=== PATIENT | female | born 1970 | race Two or more races ===

== ENCOUNTER 2017-06-20 13:08 | Emergency (ER) | payer OTHER ==
[~2017-06-20] VITALS: Ht 157.5 cm; Wt 72.6 kg
--- NOTE | 2017-06-20 14:38 | Emergency Room Report ---
History of Present Illness General Chief Complaint: Vaginal Source: Patient (Jessica Benítez) Present Illness HPI 47-year-old female presents to the emergency department complaining of erythema , swelling, tenderness to the right vaginal labia x2 weeks. Patient reports swelling and tenderness have been progressive with significant progression since yesterday. Patient reports that she was seen by an urgent care clinic and was prescribed antibiotics for vaginal discharge but then called several days later and told to DC antibiotics as her results were normal. Patient denies dysuria, hematuria, continued vaginal discharge. Patient denies fevers chills or swollen tender lymph nodes. Denies abdominal pain. Denies CP, Palpitations, LOC, AMS, dizziness, Changes in Vision, Sensation, paresthesias, or a sudden severe headache. (Jessica Beíntez) Allergies: Coded Allergies: No Known Allergies (Unverified , 06/20/17) Patient History Past Medical History: see triage record Past Surgical History: none Pertinent Family History: none Last Menstrual Period: 3 weeks ago Now: No Immunizations: UTD Reviewed Nursing Documentation: PMH: Agreed, PSxH: Agreed (Jessica Benítez) Nursing Documentation-PMH Past Medical History: No Stated History (Jessica Benítez) Review of Systems All Other Systems: negative except mentioned in HPI (Jessica Benítez) Physical Exam Vital Signs Date Time Temp Pulse Resp B/P (MAP) Pulse Ox O2 Delivery O2 Flow Rate FiO2 06/20/17 13:17 98.4 88 16 134/84 98 Room Air Sp02 EP Interpretation: reviewed, normal General Appearance: no apparent distress, alert, GCS 15, non-toxic Head: normocephalic, atraumatic ENT: hearing grossly normal, normal voice Neck: full range of motion Respiratory: lungs clear, normal breath sounds, speaking full sentences Cardiovascular #1: regular rate, rhythm Gastrointestinal: non tender, soft Musculoskeletal: back normal, gait/station normal, normal range of motion, non- tender Neurologic: alert, oriented x3, responsive, motor strength/tone normal, sensory intact, speech normal, grossly normal Psychiatric: judgement/insight normal Skin: warm/dry, well hydrated, other - 1 cm abscess palpated to the lower right external labia, erythema noted, no blisters or vesicles, fluctuance palpated. Lymphatic: no adenopathy (Jessica Benítez) Procedures Incision and Drainage Incision and Drainage : Consent: Verbal Blade Size: 11 I & D Procedure: betadine prep Wound Location: other - right external labia Wound's Depth, Shape: superficial Wound Length (cm): 1 Wound Explored: contaminated - purulent drainage was expressed Anesthesia: Lidocaine w/ Epi Volume Anesthetic (ccs): 1 Splint Applied?: No Sling Applied?: No Patient Tolerated: Well Complications: None (Jessica Benítez) Medical Decision Making PA Attestation Dr. Quinn is my supervising Physician whom patient management has been discussed with. (Jessica Benítez) Diagnostic Impression: Primary Impression: Abscess ER Course 47-year-old female presents to the emergency department complaining of erythema , swelling, tenderness to the right vaginal labia x2 weeks. Patient reports swelling and tenderness have been progressive with significant progression since yesterday. Patient reports that she was seen by an urgent care clinic and was prescribed antibiotics for vaginal discharge but then called several days later and told to DC antibiotics as her results were normal. Patient denies dysuria, hematuria, continued vaginal discharge. Patient denies fevers chills or swollen tender lymph nodes. Denies abdominal pain. Denies CP, Palpitations, LOC, AMS, dizziness, Changes in Vision, Sensation, paresthesias, or a sudden severe headache. Ddx considered but are not limited to cellulitis, abscess, cystic acne, necrotizing fasciitis, insect bite. Vital signs: are WNL, pt. is afebrile H&PE are most consistent with abscess. ORDERS: none required at this time, the diagnosis is clinical ED INTERVENTIONS: - I & D DISCHARGE: At this time pt. is stable for d/c to home. Will provide printed patient care instructions, and any necessary prescriptions. Care plan and follow up instructions have been discussed with the patient prior to discharge. (Jessica Benítez) Last Vital Signs Date Time Temp Pulse Resp B/P (MAP) Pulse Ox O2 Delivery O2 Flow Rate FiO2 06/20/17 13:17 98.4 88 16 134/84 98 Room Air (Jessica Benítez) Last Vital Signs Date Time Temp Pulse Resp B/P (MAP) Pulse Ox O2 Delivery O2 Flow Rate FiO2 06/20/17 15:10 98.4 16 134/84 98 Room Air 06/20/17 13:17 88 (Jorge Quinn M.D.) Disposition: HOME, SELF-CARE Condition: Stable Scripts Bacitracin/Polymyxin B Sulfate (BACITRACIN-POLYMYXIN OINTMENT) 28.35 Gm Oint...g. 1 APPLIC TP BID, #28.3 GM Prov: Jessica Benítez 06/20/17 Cephalexin* (KEFLEX*) 500 Mg Capsule 500 MG ORAL EVERY 12 HOURS for 7 Days, #14 CAP 0 Refills Prov: Jessica Benítez 06/20/17 Patient Instructions: Abscess Additional Instructions: Take medications as directed. Follow up with a Primary Care Provider in 3-5 days, even if your symptoms have resolved. --Please review list of primary care clinics, if you do not already have a primary care provider Return sooner to ED if new symptoms occur, or current symptoms become worse. - Please note that this Emergency Department Report was dictated using [employer] technology software, occasionally this can lead to erroneous entry secondary to interpretation by the dictation equipment. Jessica Benítez Jun 20, 2017 14:38 Jorge Quinn M.D. Jun 22, 2017 06:55
[2017-06-20] MEDS ORDERED: CEPHALEXIN500 MG ORAL (14:42)
[2017-06-20] MEDS ORDERED: BACITRACIN-P28.35 GM TP (14:42)
[2017-06-20 15:10] VITALS: BP 134/84
== END 2017-06-20 15:12 | disposition home or self-care (01) ==
LOC: EMR 14:40
DX: N76.4 Abscess of vulva (principal)
CPT/HCPCS: 10060; 99283

== ENCOUNTER → 2019-07-26 | Emergency (ER) | payer OTHER ==
[~2019-07-26] VITALS: Ht 157.5 cm; Wt 73.5 kg
[~2019-07-26] MED LIST: ANUSOL-HC30 GM RC; BACITRACIN-P28.35 GM TP; CEPHALEXIN500 MG ORAL; COLACE100 MG ORAL; IBUPROFEN600 MG ORAL; LIPITOR80 MG ORAL; PROMETHAZINE-D118 ML ORAL; TYLENOL EXTRA500 MG ORAL; ZITHROMAX250 MG ORAL
--- NOTE | 2019-07-26 16:40 | NUR ---
ED Nurse Note: pt ambulated into ED from home c/o "bulging flesh" around the anus, painful. denies any bleeding. Pt is AOx4, calm and cooperative, placed on bed.
--- NOTE | 2019-07-26 16:45 | Emergency Room Report ---
History of Present Illness General Chief Complaint: Pain Source: Patient Present Illness HPI 49-year-old female with no segment past medical history here complaining of 2 days of a painful mass in anal region. Reports that she has been straining however denies constipation. Denies any blood in stool. Denies fever and chills, recent travel. Denies abdominal pain, nausea vomiting. Nonbleeding external hemorrhoid visualized. COVID-19 risk:Travel to affect: No Has patient experienced palmer: No Allergies: Coded Allergies: No Known Allergies (Unverified , 06/20/17) Patient History Past Medical History: see triage record Past Surgical History: none Pertinent Family History: none Now: No Immunizations: UTD Reviewed Nursing Documentation: PMH: Agreed; PSxH: Agreed Nursing Documentation-PMH Past Medical History: No Stated History Review of Systems All Other Systems: negative except mentioned in HPI Physical Exam Vital Signs Date Time Temp Pulse Resp B/P (MAP) Pulse Ox O2 Delivery O2 Flow Rate FiO2 07/26/19 16:32 98.2 72 17 141/90 (107) 97 Room Air Sp02 EP Interpretation: reviewed, normal General Appearance: no apparent distress, alert, GCS 15, non-toxic Head: normocephalic, atraumatic Eyes: bilateral eye normal inspection, bilateral eye PERRL ENT: hearing grossly normal, normal pharynx, no angioedema, normal voice Neck: full range of motion, supple/symm/no masses Respiratory: chest non-tender, lungs clear, normal breath sounds, no rhonchi, no wheezing, speaking full sentences Cardiovascular #1: regular rate, rhythm, no edema Gastrointestinal: normal bowel sounds, non tender, soft, non-distended, no guarding, no rebound Rectal: deferred, hemorrhoids - Nonbleeding external Genitourinary: no CVA tenderness Musculoskeletal: back normal, normal range of motion, gait/station normal, non- tender Neurologic: alert, motor strength/tone normal, oriented x3, sensory intact, responsive, speech normal Psychiatric: judgement/insight normal, memory normal, mood/affect normal, no suicidal/homicidal ideation Skin: no rash Lymphatic: no adenopathy Medical Decision Making PA Attestation All my diagnosis and treatment plans were reviewed ad discussed with my supervising physician Dr. Spence Diagnostic Impression: Primary Impression: External hemorrhoid ER Course 49-year-old female with no segment past medical history here complaining of 2 days of a painful mass in anal region. Reports that she has been straining however denies constipation. Denies any blood in stool. Denies fever and chills, recent travel. Denies abdominal pain, nausea vomiting. Nonbleeding external hemorrhoid visualized. Ddx considered but are not limited to : Anal fissure, perianal abscess, pyrosis , external hemorrhoids, internal hemorrhoid, bleeding external hemorrhoids Vital signs: are WNL, pt. is afebrile H&PE are most consistent with: Nonbleeding external hemorrhoid ORDERS: Anusol rectal cream, Motrin, Colace ED INTERVENTIONS: None required at this time. DISCHARGE: At this time pt. is stable for d/c to home. Will provide printed patient care instructions, and any necessary prescriptions. Care plan and follow up instructions have been discussed with the patient prior to discharge. Increase fiber intake, increase oral hydration, take medication as directed, if worsening symptoms return to the emergency room Last Vital Signs Date Time Temp Pulse Resp B/P (MAP) Pulse Ox O2 Delivery O2 Flow Rate FiO2 07/26/19 16:32 98.2 72 17 141/90 (107) 97 Room Air Disposition: HOME, SELF-CARE Condition: Stable Scripts Ibuprofen* (MOTRIN*) 600 Mg Tablet 600 MG ORAL Q8H PRN for For Pain, #30 TAB 0 Refills Prov: Saqib Barrientos 07/26/19 Hydrocortisone Hc 2.5% Cream (ANUSOL-HC 2.5% CREAM) Y Cr 2 GM RC TID, #30 GM Prov: Saqib Barrientos 07/26/19 Docusate Sodium* (COLACE*) 100 Mg Capsule 100 MG ORAL DAILY, #10 CAP Prov: Saqib Barrientos 07/26/19 Patient Instructions: Hemorrhoids, Piqu-ds-Fdyb Additional Instructions: Drink a lot of water, increase your fiber intake, take stool softeners, take medication as directed, follow-up with your primary care provider, if worsening symptoms return to emergency room Saqib Barrientos Jul 26, 2019 16:45
[2019-07-26 16:50] VITALS: BP 141/90
[2019-07-26 16:58] VITALS: BP 141/90
--- NOTE | 2019-07-26 16:58 | NUR ---
ER DISCHARGE NOTE: Pt is cleared to be discharged per ERMD, pt is aox4, on room air, with stable vital signs. pt was given dc and prescription instructions, pt was able to verbalize understanding, pt id band removed. pt is able to ambulate with steady gait. pt took all belongings.
== END | disposition home or self-care (01) ==
LOC: EMR 16:45
DX: K64.4 Residual hemorrhoidal skin tags (principal)
CPT/HCPCS: 99283

== ENCOUNTER 2019-07-31 15:08 | Emergency (ER) | payer OTHER ==
[~2019-07-31] VITALS: Ht 157.5 cm; Wt 77.1 kg
[2019-07-31 15:08] VITALS: BP 163/99
[~2019-07-31 15:08] MED LIST changes: -PROMETHAZINE-D118 ML ORAL; -TYLENOL EXTRA500 MG ORAL; -ZITHROMAX250 MG ORAL
--- NOTE | 2019-07-31 15:55 | Emergency Room Report ---
History of Present Illness General Chief Complaint: Flu Like Symptoms Source: Patient Present Illness HPI 49-year-old female presents to the emergency department complaining of 8 out of 10 severity generalized body aches, headache, subjective fevers and chills in addition to intermittent cough and sore throat x2 days. Patient states that she has been taking vaoj-sln-gveeqxz cough and cold medications to manage her symptoms. Patient brought her medications with her and it appears to contain acetaminophen dextromethorphan and guaifenesin. Patient reports she last took some at 5 in the morning. Denies recent travel. Denies contact with persons who have tested positive for or are under investigation/quarantine for COVID- 19. Patient states that she was around someone that was coughing 2 days ago at the pharmacy when she was getting medications. She also states she did not receive this years flu vaccine. Patient denies any significant past medical history. Patient denies mucus production. COVID-19 risk:Travel to affect: No Has patient experienced palmer: Yes Coronavirus symptoms experienc: Fever (T>100.4F or >38C), Cough, Runny Nose, Flu-Like Symptoms Allergies: Coded Allergies: No Known Allergies (Unverified , 06/20/17) Patient History Past Medical History: see triage record Past Surgical History: none Pertinent Family History: none Now: No Reviewed Nursing Documentation: PMH: Agreed; PSxH: Agreed Nursing Documentation-PMH Past Medical History: No History, Except For Review of Systems All Other Systems: negative except mentioned in HPI Physical Exam Vital Signs Date Time Temp Pulse Resp B/P (MAP) Pulse Ox O2 Delivery O2 Flow Rate FiO2 07/31/19 14:54 99.9 108 23 163/99 (120) 99 Room Air Sp02 EP Interpretation: reviewed, normal General Appearance: no apparent distress, alert, GCS 15, non-toxic Head: normocephalic, atraumatic Eyes: bilateral eye normal inspection, bilateral eye PERRL ENT: hearing grossly normal, normal voice, pharyngeal erythema, other - no exudates Neck: full range of motion, no meningismus Respiratory: chest non-tender, lungs clear, normal breath sounds, no respiratory distress, no accessory muscle use, no wheezing, speaking full sentences Cardiovascular #1: regular rate, rhythm, normal capillary refill Genitourinary: normal inspection, no CVA tenderness Musculoskeletal: back normal, normal range of motion, gait/station normal, non- tender Neurologic: alert, motor strength/tone normal, oriented x3, sensory intact, responsive, speech normal Psychiatric: judgement/insight normal Skin: no rash, normal color, normal inspection Lymphatic: no adenopathy Medical Decision Making PA Attestation Dr. Montejo is my supervising Physician whom patient management has been discussed with. Diagnostic Impression: Primary Impression: Acute viral syndrome Additional Impressions: Leukocytosis Qualified Codes: D72.828 - Other elevated white blood cell count Fever Qualified Codes: R50.9 - Fever, unspecified ER Course Pt. presents to the ED with s/sx c/w URI in the setting of a local COVID-19 Outbreak. - This PT. was triaged outside the facility in a designated staging area and placed into isolation tent. - Full PPE for airborne/droplet isolation (booties, Gown, doubled nitrile gloves, N95 Mask covered by Surgical mask w. face shield, and hair net) was dawned in the designated HCP staging area prior to pt. interaction. 49-year-old female presents to the emergency department complaining of 8 out of 10 severity generalized body aches, headache, subjective fevers and chills in addition to intermittent cough and sore throat x2 days. Patient states that she has been taking [id number]-[id number] cough and cold medications to manage her symptoms. Patient brought her medications with her and it appears to contain acetaminophen dextromethorphan and guaifenesin. Patient reports she last took some at 5 in the morning. Denies recent travel. Denies contact with persons who have tested positive for or are under investigation/quarantine for COVID- 19. Patient states that she was around someone that was coughing 2 days ago at the pharmacy when she was getting medications. She also states she did not receive this years flu vaccine. Patient denies any significant past medical history. Patient denies mucus production. Ddx considered but are not limited to URI, pneumonia, PE, strep pharyngitis, meningitis. Vital signs: Pt. is Tachycardic and febrile, the remaining VS are WNL H&PE are most consistent with URI- no meningeal signs, oropharynx is not involved, no evidence of bacterial infection at this time. ORDERS: -Influenza A & B : Negative - CXR: WNL -CBC: elevated WBC's -COVID-19: PENDING ED INTERVENTIONS: -Toradol IM -Tylenol PO DISCHARGE: At this time pt. is stable for d/c to home. Will provide printed patient care instructions, and any necessary prescriptions. Care plan and follow up instructions have been discussed with the patient prior to discharge. Labs Test 07/31/19 16:17 White Blood Count 19.8 K/UL (4.8-10.8) Red Blood Count 5.09 M/UL (4.20-5.40) Hemoglobin 15.4 G/DL (12.0-16.0) Hematocrit 45.0 % (37.0-47.0) Mean Corpuscular Volume 88 FL (80-99) Mean Corpuscular Hemoglobin 30.2 PG (27.0-31.0) Mean Corpuscular Hemoglobin Concent 34.1 G/DL (32.0-36.0) Red Cell Distribution Width 12.9 % (11.6-14.8) Platelet Count 244 K/UL (150-450) Mean Platelet Volume 9.1 FL (6.5-10.1) Neutrophils (%) (Auto) % (45.0-75.0) Lymphocytes (%) (Auto) % (20.0-45.0) Monocytes (%) (Auto) % (1.0-10.0) Eosinophils (%) (Auto) % (0.0-3.0) Basophils (%) (Auto) % (0.0-2.0) Differential Total Cells Counted 100 Neutrophils % (Manual) 80 % (45-75) Lymphocytes % (Manual) 8 % (20-45) Monocytes % (Manual) 6 % (1-10) Eosinophils % (Manual) 0 % (0-3) Basophils % (Manual) 1 % (0-2) Band Neutrophils 5 % (0-8) Platelet Estimate Adequate Platelet Morphology Normal Red Blood Cell Morphology Normal Chest X-Ray Diagnostic Results Chest X-Ray Diagnostic Results : Chest X-Ray Ordered: Yes # of Views/Limited/Complete: 1 View EP Interpretation: Yes PA Xray: Interpretation reviewed, by supervising MD, and agrees with findings. Interpretation: no consolidation, no effusion, no pneumothorax, no acute cardiopulmonary disease Impression: No acute disease Electronically Signed by: Jessica Benítez PA-C Last Vital Signs Date Time Temp Pulse Resp B/P (MAP) Pulse Ox O2 Delivery O2 Flow Rate FiO2 07/31/19 15:08 108 23 Room Air 07/31/19 15:08 99.9 163/99 99 Disposition: HOME, SELF-CARE Condition: Stable Scripts D-Methorphan Hb/Prometh Hcl* (PROMETHAZINE-DM SYRUP*) 118 Ml Syrup 5 ML ORAL Q6H PRN for For Cough, #120 ML 0 Refills Prov: Jessica Benítez 07/31/19 Ibuprofen* (MOTRIN*) 600 Mg Tablet 600 MG ORAL THREE TIMES A DAY, #30 TAB 0 Refills Prov: Jessica Benítez 07/31/19 Acetaminophen* (TYLENOL EXTRA STRENGTH*) 500 Mg Tablet 500 MG ORAL Q6H PRN for Mild Pain/Temp > 100.5, #30 TAB 0 Refills Prov: Jessica Benítez 07/31/19 Azithromycin* (ZITHROMAX*) 250 Mg Tablet 250 MG ORAL DAILY, #6 TAB 0 Refills Take two tables once daily for 1 day, then one tablet once daily for 4 days. Prov: Jessica Benítez 07/31/19 Patient Instructions: Cough, Adult, Vvei-al-Muek, Fever, Adult, Adke-lh-Xfns Additional Instructions: DUE TO YOUR SYMPTOMS BEING CONSISTENT WITH THOSE OF COVID-19 INFECTION, YOU ARE TO SELF-QUARANTINE AT HOME UNTIL THE RESULTS OF YOUR TEST ARE RETURNED IN APPROXIMATELY 5-7 DAYS PLEASE NOTIFY ALL CLOSE CONTACTS IN THE LAST 2 WEEKS THAT THEY SHOULD STAY SELF-QUARANTINED INSIDE WELL UNTIL YOU RECEIVE YOUR RESULTS. CONTACT YOUR HEALTHCARE PROVIDER FOR AT HOME TREATMENT AND MONITORING. IF YOUR SYMPTOMS WORSEN OR YOU DEVELOP SHORTNESS OF BREATH/ DIFFICULTY BREATHING, FEVERS THAT DON'T RESPOND TO TYLENOL/MOTRIN THEN RETURN TO THE EMERGENCY DEPARTMENT FOR ADMISSION CONSIDERATION. * PLEASE REVIEW PROVIDED COVID-19 SELF QUARANTINE INFORMATION DOCUMENT THAT IS PROVIDED TO YOU * AT THIS PRESENT TIME YOUR VITAL SIGNS ARE STABLE AND YOU ARE STABLE TO BE TREATED AN OUTPATIENT AT HOME. Take medications as directed. Follow up with a Primary Care Provider in 3-5 days, even if your symptoms have resolved. --Please review list of primary care clinics, if you do not already have a primary care provider Return sooner to ED if new symptoms occur, or current symptoms become worse. - Please note that this Emergency Department Report was dictated using [employer] tap[employer] technology software, occasionally this can lead to erroneous entry secondary to interpretation by the dictation equipment. Jessica Benítez Jul 31, 2019 15:55
[2019-07-31] MEDS ORDERED: Ketorolac 30mg Inj IM ONE (16:15)
[2019-07-31 16:43] LABS: HEMOGLOBIN 15.4 G/DL (12.0-16.0); MEAN CORPUSCULAR VOLUME 88 FL (80-99); PLATELET COUNT 244 K/UL (150-450); RED BLOOD COUNT 5.09 M/UL (4.20-5.40); RED CELL DISTRIBUTION WIDTH 12.9 % (11.6-14.8); WHITE BLOOD COUNT 19.8 K/UL (4.8-10.8)
--- NOTE | 2019-07-31 17:05 | Diagnostic Imaging Report ---
Indication: Chest pain Technique: One view of the chest Comparison: none Findings: Lungs and pleural spaces are clear. Heart size is normal. Impression: No acute process
[2019-07-31] MEDS ORDERED: TYLENOL EXTRA500 MG ORAL (17:40)
[2019-07-31] MEDS ORDERED: PROMETHAZINE-D118 ML ORAL (17:40)
[2019-07-31] MEDS ORDERED: IBUPROFEN600 MG ORAL (17:40)
[2019-07-31] MEDS ORDERED: ZITHROMAX250 MG ORAL (17:40)
[2019-07-31 18:00] VITALS: BP 158/87
== END 2019-07-31 18:00 | disposition home or self-care (01) ==
LOC: EMR 15:30
DX: B34.9 Viral infection, unspecified (principal); D72.828 Other elevated white blood cell count; R50.9 Fever, unspecified; Z03.818 Encounter for observation for suspected exposure to other biological agents ruled out
CPT/HCPCS: 36415; 71045; 85007; 85025; 86710; 96372; 99283; J1885

== ENCOUNTER 2020-03-08 13:14 | Emergency (ER) | payer OTHER ==
[~2020-03-08] VITALS: Ht 157.5 cm; Wt 78.0 kg
[~2020-03-08 13:14] MED LIST changes: +PROMETHAZINE-D118 ML ORAL; +TYLENOL EXTRA500 MG ORAL; +ZITHROMAX250 MG ORAL
--- NOTE | 2020-03-08 13:45 | Emergency Room Report ---
History of Present Illness General Chief Complaint: Lower Extremity Injury Present Illness HPI 49-year-old female with no no signal past medical history here complaining of a painful mass bottom of right big toe x2 days. Patient reports that he noticed a painless mass about a week ago and tried to remove it herself, it appears to be a foot work. Reports that has been having pus drainage and bleeding for the past 2 days. Rates the pain 7 out of 10 without radiation. Reports that the pain is worse when applying pressure to the affected area. Has not taken medication for symptom relief. Is up-to-date with tetanus shot. Denies any trauma or injury to the toe. Denies . Patient is neurovascularly intact Allergies: Coded Allergies: No Known Allergies (Unverified , 06/20/17) COVID-19 Screening Contact w/high risk pt: No Experienced COVID-19 symptoms?: No COVID-19 symptoms experienced: Fever (T>100.4F or >38C), Cough, Runny Nose, Flu-Like Symptoms COVID-19 Testing performed [place]: No Patient History Past Medical History: see triage record Past Surgical History: none Pertinent Family History: none Now: No Immunizations: UTD Reviewed Nursing Documentation: PMH: Agreed; PSxH: Agreed Review of Systems All Other Systems: negative except mentioned in HPI Physical Exam Vital Signs Date Time Temp Pulse Resp B/P (MAP) Pulse Ox O2 Delivery O2 Flow Rate FiO2 03/08/20 13:20 98.2 87 18 134/87 (103) 97 Room Air Sp02 EP Interpretation: reviewed, normal General Appearance: no apparent distress, alert, GCS 15, non-toxic Head: normocephalic, atraumatic Eyes: bilateral eye normal inspection, bilateral eye PERRL ENT: hearing grossly normal, normal pharynx, no angioedema, normal voice Neck: full range of motion, supple/symm/no masses Respiratory: chest non-tender, lungs clear, normal breath sounds, speaking full sentences Cardiovascular #1: regular rate, rhythm, no edema Cardiovascular #2: 2+ dorsalis pedis (R), 2+ dorsalis pedis (L) Gastrointestinal: normal bowel sounds, non tender, soft, non-distended, no guarding, no rebound Rectal: deferred Musculoskeletal: back normal, non-tender, other - Infected mass noted bottom of the right big toe Neurologic: alert, motor strength/tone normal, oriented x3, sensory intact, responsive, speech normal Skin: other - Pus draining mass noted on bottom of right big toe Lymphatic: no adenopathy Medical Decision Making PA Attestation All diagnoses and treatment plans were reviewed and discussed with my supervising physician Dr. Yang Diagnostic Impression: Primary Impression: Warts of foot Additional Impression: Cellulitis of toe of right foot ER Course 49-year-old female with no no signal past medical history here complaining of a painful mass bottom of right big toe x2 days. Patient reports that he noticed a painless mass about a week ago and tried to remove it herself, it appears to be a foot work. Reports that has been having pus drainage and bleeding for the past 2 days. Rates the pain 7 out of 10 without radiation. Reports that the pain is worse when applying pressure to the affected area. Has not taken medication for symptom relief. Is up-to-date with tetanus shot. Denies any trauma or injury to the toe. Denies . Patient is neurovascularly intact Ddx considered but are not limited to : Cellulitis, infected foot wart, superficial infection, abscess Vital signs: are WNL, pt. is afebrile H&PE are most consistent with: Infected foot wart ORDERS: Foot x-ray, Keflex, Motrin ED INTERVENTIONS: Wound clean and dressed DISCHARGE: At this time pt. is stable for d/c to home. Will provide printed patient care instructions, and any necessary prescriptions. Care plan and follow up instructions have been discussed with the patient prior to discharge. Follow-up primary care provider and glazier helper, for proper removal of the foot wart after the infection has been resolved. If worsening symptoms return to the emergency room Other X-Ray Diagnostic Results Other X-Ray Diagnostic Results : X-Ray ordered: Right foot # of Views/Limited Vs Complete: 3 View Indication: Pain EP Interpretation: Yes PA Xray: Interpretation reviewed, by supervising MD, and agrees with findings. Electronically Signed by: Saqib PAULINO [employer] Text COMPARISON: None FINDINGS: Bones/joints: No displaced fracture or dislocation identified. Osteopenia. Mild degenerative changes of the right first MTP joint. Small plantar calcaneal spur. Soft tissues: Diffuse soft tissue swelling. IMPRESSION: No displaced fracture or dislocation identified. Last Vital Signs Date Time Temp Pulse Resp B/P (MAP) Pulse Ox O2 Delivery O2 Flow Rate FiO2 03/08/20 13:20 98.2 87 18 134/87 (103) 97 Room Air Disposition: HOME, SELF-CARE Condition: Stable Scripts Ibuprofen* (MOTRIN*) 600 Mg Tablet 600 MG ORAL Q8H PRN for FOR PAIN, #30 TAB 0 Refills Prov: Saqib Barrientos 03/08/20 Cephalexin* (KEFLEX*) 500 Mg Capsule 500 MG ORAL EVERY 6 HOURS for 7 Days, #28 CAP Prov: Saqib Barrientos 03/08/20 Referrals: NON PHYSICIAN (PCP) Patient Instructions: Cellulitis, [id number], Warts Additional Instructions: Follow-up primary care provider and glazier helper, for proper removal of the foot wart after the infection has been resolved. If worsening symptoms return to the emergency room Saqib Barrientos Mar 08, 2020 13:45
[2020-03-08] MEDS ORDERED: IBUPROFEN600 M1 ORAL (13:46)
[2020-03-08] MEDS ORDERED: CEPHALEXIN500 MG ORAL (13:46)
[2020-03-08 14:05] VITALS: BP 134/87
--- NOTE | 2020-03-08 14:46 | Diagnostic Imaging Report ---
EXAM: XR Right Foot Complete, 3 or More Views CLINICAL HISTORY: TRAUMA TECHNIQUE: Frontal, lateral and oblique views of the right foot. COMPARISON: None FINDINGS: Bones/joints: No displaced fracture or dislocation identified. Osteopenia. Mild degenerative changes of the right first MTP joint. Small plantar calcaneal spur. Soft tissues: Diffuse soft tissue swelling. IMPRESSION: No displaced fracture or dislocation identified.
== END 2020-03-08 14:05 | disposition home or self-care (01) ==
LOC: EMR 13:29
DX: B07.9 Viral wart, unspecified (principal); L03.115 Cellulitis of right lower limb; M77.31 Calcaneal spur, right foot; M85.871 Other specified disorders of bone density and structure, right ankle and foot
CPT/HCPCS: 99283